=== PATIENT | female | born 1950 | race Caucasian/White ===

== ENCOUNTER 2023-07-31 13:18 | Emergency (ER) | payer MEDICARE ==
[~2023-07-31] VITALS: Ht 157.4 cm; Wt 70.3 kg
[~2023-07-31 13:18] MED LIST: CLARITAN; DONNATAL1 TAB PO; FISH OIL 10001000 MG PO; LEVAQUIN750 MG PO; MEDROL DOSEPAK4 MG PO; VICODIN 5/500 505 MG PO; ZITHROMAX PO; ZOFRAN ODT4 MG SL
[2023-07-31] MEDS ORDERED: Ketorolac Tromethamine 15 MG/ML VIAL IV ONE (13:50)
[2023-07-31] MEDS ORDERED: SODIUM CHLORIDE 0.9% 1,000 ML IV ONE (13:50)
[2023-07-31] MEDS ORDERED: IOHEXOL 300 MG/ML 100 ML VIAL IV ONE (13:55)
[2023-07-31 14:11] LABS: BASO % 0.4 % (0.0-1.0); BILIRUBIN Negative (Negative); BLOOD 2+ (Negative); CLARITY Clear (Clear); COLOR Yellow (Yellow); EOS # 0.1 10*3/uL (0.0-0.4); EOS % 1.2 % (1.0-4.0); GLUCOSE Negative (Negative); HEMATOCRIT 43.3 % (37.0-47.0); KETONE Negative (Negative); LEUKO ESTERASE Trace (Negative); LYMPH # 2.2 10*3/uL (1.3-4.4); LYMPH % 19.5 % (27.0-41.0); MEAN CELL VOLUME 88.2 fl (81.0-99.0); MEAN CORPUSCULAR HGB 28.1 pg (27.0-31.0); MEAN CORPUSCULAR HGB CONC 31.9 g/dl (33.0-37.0); MEAN PLATELET VOLUME 8.9 fl (9.6-12.3); MONO # 0.9 10*3/uL (0.1-1.0); MONO % 8.1 % (3.0-9.0); NEUT # 7.9 10*3/uL (2.3-7.9); NEUT % 70.5 % (47.0-73.0); NITRITE Negative (Negative); PH 5.5 (4.5-8.0); PLATELET COUNT AUTOMATED 256 10*3/uL (130-400); RED BLOOD COUNT 4.91 10*6/uL (4.10-5.10); RED CELL DISTRI WIDTH 12.6 % (0-14.5); UROBILINOGEN 0.2 E.U./dl (0.0-1.0); WHITE BLOOD COUNT 11.2 10*3/uL (4.8-10.8)
[2023-07-31 14:37] LABS: ALKALINE PHOSPHATASE 90 U/L (46-116); BUN 7 mg/dl (9-23); CHLORIDE 107 mmol/L (98-107); LIPASE 50 U/L (12-53); SGPT/ALT 15 U/L (5-49); TOTAL PROTEIN 7.5 gm/dL (6.0-8.0)
[2023-07-31 14:47] LABS: EPITHELIAL CELLS 0-2
[2023-07-31] MEDS ORDERED: METRONIDAZOLE 500 MG TAB PO ONE ×2 (16:10→16:30)
[2023-07-31] MEDS ORDERED: Ciprofloxacin Hydrochloride 500 MG TAB PO ONE (16:10)
[2023-07-31] MEDS ORDERED: TRAMADOL HCL50 MG PO (16:27)
[2023-07-31] MEDS ORDERED: METRONIDAZOLE500 M1 PO (16:27)
[2023-07-31] MEDS ORDERED: CIPRO500 MG PO (16:27)
[2023-07-31] MEDS ORDERED: COLACE 2-IN-11 EACH PO (16:27)
== END 2023-07-31 16:33 | disposition home or self-care (01) ==
LOC: ED 13:18
PROVIDERS: Emergency Medicine
DX: R10.32 Left lower quadrant pain (principal); Z88.0 Allergy status to penicillin; Z91.040 Latex allergy status; Z88.8 Allergy status to other drugs, medicaments and biological substances; Z90.710 Acquired absence of both cervix and uterus; Z90.49 Acquired absence of other specified parts of digestive tract; Z98.890 Other specified postprocedural states